=== PATIENT | male | born 1950 | race Caucasian/White ===

== ENCOUNTER 2024-07-16 14:54 | Emergency (ER) | payer MEDICARE, OTHER ==
[~2024-07-16] VITALS: Ht 177.8 cm; Wt 98.0 kg
[2024-07-16] MEDS ORDERED: ALBUTEROL/IPRATROPIUM 3 ML NEB ONE (15:00)
[2024-07-16] MEDS ORDERED: ALBUTEROL SULFATE 0.5% 2.5 MG/0.5 ML VIAL ONE (15:11)
[2024-07-16] MEDS ORDERED: ALBUTEROL/IPRATROPIUM 3 ML NEB INH PRN (15:15)
[2024-07-16] MEDS ORDERED: ALBUTEROL SULFATE 0.042% 1.25 MG/3 ML VIAL INH ONE (15:15)
[2024-07-16 15:26] LABS: BASOPHILS 0.5 % (0-2); EOSINOPHILS 2.4 % (0-6); HEMOGLOBIN 15.7 g/dL (12.0-18.0); LYMPHOCYTES 8.2 % (24-44); MCH 29.1 (27-36); MCHC 34.1 g/dl (30-36); MCV 85.4 fl (81-99); MONOCYTES 8.1 % (0-12); NEUTROPHILS 80.8 % (39-80); PLATELET COUNT 261 K/uL (140-440); RBC 5.39 M/ul (4.3-5.7); RDW 14.3 (10.5-15.0)
[2024-07-16 15:47] LABS: ALBUMIN 3.7 g/dL (3.4-5.0); ANION GAP 12.8 (7-21); BILIRUBIN, TOTAL 0.6 mg/dL (0.2-1.0); BUN/CREATININE RATIO 10.2 (6.0-28.6); CALCIUM 9.2 mg/dL (8.5-10.1); CREATININE, SERUM 0.98 mg/dL (0.70-1.30); MAGNESIUM 2.1 mg/dL (1.8-2.4); POTASSIUM 3.8 mmol/L (3.5-5.1); PROTEIN, TOTAL 7.4 g/dL (6.4-8.2)
[2024-07-16] MEDS ORDERED: AMIODARONE/DEXTROSE 200 ML IV ONE ×2 (16:00→21:50)
[2024-07-16] MEDS ORDERED: AMIODARONE/DEXTROSE 100 ML IV ONE (16:00)
[2024-07-16] MEDS ORDERED: CHOLESTYRAMINE P4 GM PO (16:08)
[2024-07-16] MEDS ORDERED: LOSARTAN POTASS25 MG PO (16:08)
[2024-07-16] MEDS ORDERED: methylPREDNISolone SOD SUCC 125 MG/2 ML VIAL IV ONE (16:15)
[2024-07-16] MEDS ORDERED: DEXAMETHASONE SOD PHOS 10 MG/ML VIAL IV ONE (18:30)
[2024-07-16] MEDS ORDERED: VENTOLIN HFA18 GM INH (20:04)
[2024-07-16] MEDS ORDERED: PREDNISONE20 MG PO (20:04)
[2024-07-16 20:18] VITALS: BP 127/82
[2024-07-16] MEDS ORDERED: INHALER, ASSIST DEVICES 1 EACH SPACER MISC ONE (20:30)
[2024-07-16] MEDS ORDERED: ALBUTEROL SULFATE 8 GM HOME.PACK INH ONE (20:30)
--- NOTE | 2024-07-16 21:20 | EKG ---
[facility] [address] [facility] [place] [address] Signed Sinus tachycardia with occasional premature ventricular complexes Otherwise normal ECG No previous ECGs available Confirmed by Merna Cameron MD () on 07/16/2024 9:20:38 PM Electronically Signed By: MERNA CAMERON MD 07/16/242119 PATIENT NAME: DELMI ASTUDILLO Electrocardiogram DATE OF : 54 PHYSICIAN: MERNA CAMERON MD REPORT #: [id number] REPORT IS CONFIDENTIAL AND NOT TO BE RELEASED WITHOUT AUTHORIZATION
--- NOTE | 2024-07-16 21:25 | EKG ---
[facility] [address] [facility] [place] [address] Signed Atrial fibrillation with rapid ventricular response Marked ST abnormality, possible inferior subendocardial injury Marked ST abnormality, possible anterior subendocardial injury Abnormal ECG When compared with ECG of 16-JUL-2024 15:16, Atrial fibrillation has replaced Sinus rhythm ST now depressed in Inferior leads ST now depressed in Anterolateral leads T wave inversion now evident in Inferior leads T wave inversion now evident in Lateral leads Confirmed by Merna Cameron MD () on 07/16/2024 9:24:50 PM Electronically Signed By: MERNA CAMERON MD 07/16/242124 PATIENT NAME: DELMI ASTUDILLO Electrocardiogram DATE OF : 54 PHYSICIAN: MERNA CAMERON MD REPORT #: [id number] REPORT IS CONFIDENTIAL AND NOT TO BE RELEASED WITHOUT AUTHORIZATION
--- NOTE | 2024-07-16 21:28 | EKG ---
[facility] [address] [facility] [place] [address] Signed Sinus tachycardia with premature atrial complexes Nonspecific ST and T wave abnormality Abnormal ECG When compared with ECG of 16-JUL-2024 15:36, Sinus tachycardia has replaced Atrial fibrillation ST depression in Lateral leads has decreased Confirmed by Merna Cameron MD () on 07/16/2024 9:28:23 PM Electronically Signed By: MERNA CAMERON MD 07/16/248 PATIENT NAME: DELMI ASTUDILLO Electrocardiogram DATE OF : 54 PHYSICIAN: MERNA CAMERON MD REPORT #: [id number] REPORT IS CONFIDENTIAL AND NOT TO BE RELEASED WITHOUT AUTHORIZATION
--- NOTE | 2024-07-16 21:33 | EKG ---
[facility] [address] [facility] [place] [address] Signed Normal sinus rhythm Nonspecific T wave abnormality Abnormal ECG When compared with ECG of 16-JUL-2024 15:59, premature atrial complexes are no longer present Confirmed by Merna Cameron MD () on 07/16/2024 9:33:22 PM Electronically Signed By: MERNA CAMERON MD 07/16/24 213 PATIENT NAME: KENDRICKLEXYDELMI Electrocardiogram DATE OF : 54 PHYSICIAN: MERNA CAMERON MD REPORT #: [id number] REPORT IS CONFIDENTIAL AND NOT TO BE RELEASED WITHOUT AUTHORIZATION
[2024-07-17] MEDS ORDERED: AMIODARONE HCL 180 MG in DEXTROSE 5% 96.4 ML IV ONE (09:50)
== END 2024-07-16 20:29 | disposition home or self-care (01) ==
LOC: ED 14:54
PROVIDERS: Emergency Medicine
DX: J45.901 Unspecified asthma with (acute) exacerbation (principal); I10 Essential (primary) hypertension; Z88.1 Allergy status to other antibiotic agents; Z79.899 Other long term (current) drug therapy
CPT/HCPCS: 36415; 71045; 71260; 80053; 83735; 83880; 84484; 85025; 93005; 93010; 93970; 94640; 94664; 99285-25; J0282; J1100; J2919; Q9967